=== PATIENT | female | born 1980 | race Hispanic/Latino ===

== ENCOUNTER 2017-05-17 12:06 | Inpatient (IN) | payer MEDICAID, OTHER, SELFPAY ==
[2017-05-17 12:49] VITALS: BMI 35.9
[2017-05-17] MEDS ORDERED: Lidocaine 1% (PF) 30 ML VIAL SC PRN (12:51)
[2017-05-17] MEDS ORDERED: Ondansetron HCl/PF 4 MG/2 ML Vial IVP PRN (12:51)
[2017-05-17] MEDS ORDERED: Promethazine HCl 25 MG/ML VIAL IM PRN (12:51)
[2017-05-17] MEDS ORDERED: LR / Pitocin 40 units/1000 ml 1,000 ML ONE (12:54)
[2017-05-17] MEDS ORDERED: Ibuprofen 800 MG TAB PO PRN (12:57)
[2017-05-17] MEDS ORDERED: Lactated Ringer's 1,000 ML IV SCH (13:00)
--- NOTE | 2017-05-17 13:12 | PDOC.LDHP ---
Labor and Delivery H&P Chief complaint: contractions HPI: 37 yr old at 37.2 wks by 8.1 wk sono who was sent over from [facility] for contractions and SVE of 5 cm dilated. She has had contractions since yesterday morning and are now occuring every 5 minutes. Also recent diagnosis today of cholestasis of . Bile acids 11. +GDM on BID metfromin. Last week of BG reviewed and all FBG <95 and 2 hr PP < 120. Reports no other concerns at this time. NILM pap 06/2015. She has hx of prior PTD during 1st . 2 subsequent pregnancies delivered full term with progesterone and one without progesterone. Current gestational age (weeks): 5 Due date: 06/05/17 Dating criteria: first trimester ultrasound Grav: 5 Para: 4 ([id number]) Current complications: gestational diabetes, other (cholestasis of dx today) Abnormal US findings: No (Anatomy wnl, marginal previa resolved on later screen. ) Past Medical History: none Current medications: pre- vitamins, iron Previous surgical history: none Allergies/Adverse Reactions: Allergies Allergy/AdvReac Type Severity Reaction Status Date / Time No Known Drug Allergies Allergy Verified 12/31/15 21:15 Social history: none - Physical Exam Vital signs reviewed and normal: yes General: NAD Heart: RRR Lungs: CTAB Abdomen: gravid Extremeties: no edema FHT: category 1 - Vaginal Exam cm dilated: 8 Effacement: 100% Station: -1 - OB Labs Blood type: O RH: positive Antibody Screen: negative HIV: negative RPR: negative HEPSAg: negative 1 hour GCT: positive (167) 3 hour GTT: positive (FB 1HR:208 2HR:175 3HR:204) GBS: negative Rubella: immune Additional Labs: 05/09/17- bile acids: 11, CMP wnl - Assessment L&D Assessment: term patient in labor - Plan Plan: admit to L&D -: 37 yr old at 37.2 wks by 8.1 wk sono here for contractions and recent finding of cholestasis of pregnance. 1. TIUP in labor- 1T labs reviewed, marginal previa at 20.1 wk, repeat on 04/11 showing posterior placenta no previa. check HIV/RPR, CMP. expectant mgmt with [facility]. 2. A1GDM- on metformin BID well controlled BG log reviewed. accucheck at admission 73. She has had weekly NST/BPP. Recent growth scan 37.1 wks showing hadlock 61.9% 3. Cholestasis of - diagnosed toraúla, bile acids 11 (nml=10), in labor. 4. hx of PTD- took progesterone until 36 wks. 5. Anemia of - on iron. check H/H. most recent 9.2 on 02/2017 6. s/p flu A infection
[2017-05-17 13:16] LABS: Mean Corpuscular HGB CONC 33.2 g/dL (32.0-36.0); Mean Corpuscular Hemoglobin 26.9 pg (27.0-31.0); Platelet Count 155 thou/uL (130-400); RBC Distribution Width 18.9 % (11.5-14.5); Red Blood Cell (RBC) Count 4.47 mill/uL (4.20-5.40); White Blood Cell (WBC) Count 8.8 thou/uL (4.8-10.8)
[2017-05-17 13:52] LABS: ALT (SGPT) 39 U/L (8-55); AST (SGOT) 25 U/L (5-34); Albumin 3.3 g/dL (3.5-5.0); Alkaline Phosphatase 249 U/L (40-150); Anion Gap 15 mmol/L (10-20); BUN (Urea Nitrogen) 13 mg/dL (7.0-18.7); Bilirubin, Total 0.4 mg/dL (0.2-1.2); Calc. Creatinine Clearance 151 mL/min (70-130); Calcium 8.9 mg/dL (7.8-10.44); Carbon Dioxide 21 mmol/L (22-29); Chloride 104 mmol/L (98-107); Estimated GFR-MDRD Greater than 90; Globulin 3.4 g/dL (2.4-3.5); Glucose 69 mg/dL (70-105); Potassium 4.5 mmol/L (3.5-5.1); Protein, Total 6.7 g/dL (6.0-8.3); Sodium 135 mmol/L (136-145)
[2017-05-17 14:11] LABS: HBSAg Index 0.15 S/CO (0-0.99); HIV (1/2) Antibody/Antigen Non-Reactive (NonReactive); HIV 1/2 INDEX 0.07 S/CO (<1.00); Hep B Surf Ag Non-Reactive S/CO (NonReactive)
[2017-05-17] MEDS: LR / Pitocin 40 units/1000 ml 1,000 ML IV PRN ×2 (14:14→15:07)
[2017-05-17 14:22] LABS: Syphilis Antibody Nonreactive (Nonreactive); Syphilis Antibody Index 0.02 S/CO (<1.00 Non-Reactive)
--- NOTE | 2017-05-17 14:32 | PDOC.OPDEL ---
OB Operative/Delivery Note Delivery Dr/Surgeon: Jena Shields MD Assist: Dr. Davis Pre-Delivery Diagnosis: active labor Procedure/Post Delivery Dx: spontaneous vaginal delivery Weeks gestation: 37 (37.2 WGA) Anesthesia: none - Findings A Sex: male - 1 min: 9 - 5 min: 9 - Additional Findings/Plan Placenta delivered: spontaneous Repaired Obstetrical Laceration: none Estimated blood loss: 800 ml Compilations/Other Findings: Vaginal Delivery Delivering Physician: Jena Shields MD Attending: Dr. Davis Procedure: Spontaneous Vaginal Delivery Anesthesia: none EBL: 800 ml Pre-op Diagnosis: 1. Term intrauterine in labor 2. A2GDM, well controlled 3. cholestasis of 4. Hx of labor and delivery at 31 wks 5. Advanced Maternal age 6. Anemia of Post-op Diagnosis: 1. Term intrauterine , delivered 2. A2GDM, well controlled 3. cholestasis of 4. Hx of labor and delivery at 31 wks 5. Advanced Maternal age 6. Anemia of Indications: A 37 y/o female presents in active labor Delivery Note: This is 37yo F @ 37.2 wks who delivered a viable Male infant at 1354 on 05/17/17. Following antepartum course including well controlled A2GDM and a new diagnosis of cholestasis of today, a vigorous male was delivered over an intact perineum in the left occipitoanterior position. Anterior Shoulder and then remainder of the body delivered. Nuchal cord x 1. The head was held down and mouth and nares were bulb suctioned. Cord clamped and cut and cord blood collected. Placenta delivered intact with a 3 vessel cord noted. Fundal massage was performed and the fundus was firm. The cervix and vagina were inspected and found to be free of lacerations. went to nursery in good condition for routine care. Apgars were 9/9 at 1 & 5 minutes, respectively. Patient tolerated delivery well and went to after routine recovery/care. Post delivery plan: routine recovery
[2017-05-17] MEDS ORDERED: Preparation H Ointment 28 GM TUBE PR PRN (16:19)
[2017-05-17] MEDS ORDERED: Milk Of Magnesia 30 ML UDCUP PO PRN (16:19)
[2017-05-17] MEDS ORDERED: Benzocaine/Menthol 20-0.5% 60 ML CAN TOP PRN (16:19)
[2017-05-17] MEDS ORDERED: Bisacodyl 10 MG SUPP PR PRN (16:19)
[2017-05-17] MEDS ORDERED: diphenhydrAMINE 25 MG CAP PO PRN (16:19)
[2017-05-17] MEDS ORDERED: LR / Pitocin 40 units/1000 ml 1,000 ML IV SCH (16:19)
[2017-05-17] MEDS ORDERED: Lanolin Ointment 7 GM TUBE TOP PRN (16:19)
[2017-05-17] MEDS: Ibuprofen 800 MG TAB PO SCH (17:13)
[2017-05-17 17:24] LABS: Hemoglobin 11.3 g/dL (12.0-16.0)
[2017-05-17] MEDS: Docusate Calcium (SURFAK) 240 MG CAP PO SCH (21:08)
[2017-05-18] MEDS: Ibuprofen 800 MG TAB PO SCH ×3 (00:07→14:15)
[2017-05-18] MEDS: Docusate Calcium (SURFAK) 240 MG CAP PO SCH (08:59)
[2017-05-18] MEDS ORDERED: Prenatal Vitamin 1 TAB PO SCH (09:00)
--- NOTE | 2017-05-18 09:13 | PDOC.PP ---
Post Progress Note Post Day #: 1 Subjective: Patient is doing well this morning. Pain well controlled. Minimal lochia. Tolerating food well and ambulating without issue. PO intake tolerated: yes Ambulation: yes Vital Signs (12 hours) Temp Pulse Resp BP BP 05/18/17 08:25 98.3 F 60 16 108/66 05/18/17 07:45 98.2 F 59 L 18 05/18/17 04:45 98.2 F 59 L 18 101/60 05/18/17 00:00 97.9 F 61 20 111/61 Weight Weight 86.183 kg - Physical Examination General: NAD Cardiovascular: no m/r/g, RRR Respiratory: clear to auscultation bilaterally, non-labored breathing Abdominal: + bowel sounds, lochia (decreased), no distention, appropriately TTP Fundus firm & at: below umbilicus Neurological: no gross focal deficits Psychiatric: A&Ox3, normal affect Result Diagrams: 05/17/17 17:12 05/17/17 13:08 Additional Labs: Post Labs Hep Bs Antigen Non-Reactive S/CO (NonReactive) 05/17/17 13:08 (1) Term delivered Code(s): O80 - ENCOUNTER FOR FULL-TERM UNCOMPLICATED DELIVERY Status: Acute Comment: 37 yr old day 1 s/p at 37.2 wks. doing well, tolerating PO and ambulating. Will send oral pain meds. If baby okay for discharge, can D/C later today. F/U clinic. She desires permanent sterilaztion to be discussed at follow up . (2) hemorrhage, delivered, current hospitalization Code(s): O72.1 - OTHER IMMEDIATE HEMORRHAGE Status: Acute Comment : EBL 800 ml. Lochia minimal today and hgb mildly decreased appropriately. Received pitocin PP. (3) Oral hypoglycemic controlled White classification A2 gestational diabetes mellitus (GDM) Code(s): O24.415 - GESTATNL DIABETES IN PREG, CTRL BY ORAL HYPOGLYCEMIC DRUGS Status: Resolved Comment: presumably resolved s/p delivery. Recommend rescreening at 6 wks PP. (4) Anemia affecting in third trimester Code(s): O99.013 - ANEMIA COMPLICATING , THIRD TRIMESTER Status: Resolved Comment: Hgb 12 --> 11.3 Doing well. May DC iron. cont PNV. (5) Cholestasis during in third trimester Code(s): O26.613 - LIVER AND BILIARY TRACT DISORD IN , THIRD TRIMESTER ; K83.1 - OBSTRUCTION OF BILE DUCT Status: Resolved Comment: delivered. (6) Advanced maternal age in multigravida Code(s): O09.529 - SUPERVISION OF ELDERLY MULTIGRAVIDA, UNSPECIFIED TRIMESTER Status: Chronic Comment: delivered.
[2017-05-18 11:46] VITALS: BP 114/70; TEMP 98.7
== END 2017-05-18 17:55 | disposition home or self-care (01) | DRG 774 ==
LOC: L&D/OP 12:06 → L&D 12:44 → 3SW 16:48
PROVIDERS: ADMIT Obstetrics & Gynecology Obstetrics; ATTEND Obstetrics & Gynecology Obstetrics
PROC: 10E0XZZ Delivery of Products of Conception, External Approach (ICD-10-PCS; principal; 2017-05-17)
PROC: 10907ZC Drainage of Amniotic Fluid, Therapeutic from Products of Conception, Via Natural or Artificial Opening (ICD-10-PCS; 2017-05-17)
DX: O24.425 Gestational diabetes mellitus in childbirth, controlled by oral hypoglycemic drugs (principal); O72.1 Other immediate postpartum hemorrhage; K83.1 Obstruction of bile duct; O26.613 Liver and biliary tract disorders in pregnancy, third trimester; O99.013 Anemia complicating pregnancy, third trimester; D64.9 Anemia, unspecified; O69.81X0 Labor and delivery complicated by cord around neck, without compression, not applicable or unspecified; Z3A.37 37 weeks gestation of pregnancy; Z37.0 Single live birth
CPT/HCPCS: 36415; 36416; 80053; 85027; 86780; 87340; 87389; 99285; J0595

== ENCOUNTER 2018-09-08 07:21 | Inpatient (IN) | payer OTHER, SELFPAY ==
[2018-09-08 07:55] VITALS: BMI 36.8
[2018-09-08] MEDS ORDERED: Fentanyl 100 MCG/2 ML VIAL SLOW IVP PRN (08:26)
[2018-09-08] MEDS ORDERED: Promethazine HCl 25 MG/ML VIAL IM PRN (08:26)
[2018-09-08] MEDS ORDERED: Ondansetron PF 4 MG/2 ML Vial IVP PRN (08:26)
[2018-09-08] MEDS ORDERED: Lactated Ringer's 1,000 ML IV SCH ×2 (08:30)
--- NOTE | 2018-09-08 08:34 | PDOC.LDHP ---
Labor and Delivery H&P Chief complaint: contractions HPI: 38 yo at 38.5 by 1T sono her for CTX. Started ysterday evening, inc in frequency. She feels them every 5 minutes. Denies loss of fluid, VB/VD. Endorses FM. No NEWBY, chest pain, vision changes. Current gestational age (weeks): 38 (38.5) Due date: 09/17/18 Dating criteria: first trimester ultrasound Grav: 6 Para: 5 OB History Details: 1. 5 SVDs, Abnormal US findings: Yes Current medications: pre- vitamins, iron Allergies/Adverse Reactions: Allergies Allergy/AdvReac Type Severity Reaction Status Date / Time No Known Drug Allergies Allergy Verified 12/31/15 21:15 Social history: none - Physical Exam Vital signs reviewed and normal: yes General: breathing through contractions Heart: RRR Lungs: nonlabored breathing Abdomen: NTTP FHT: category 1 [place] contractions every: 4-6min - Vaginal Exam cm dilated: 6 - OB Labs Blood type: O RH: positive Antibody Screen: negative HIV: negative RPR: negative HEPSAg: negative 1 hour GCT: negative GBS: negative Rubella: immune - Assessment L&D Assessment: term patient in labor - Plan Plan: admit to L&D, labor augmentation if indicated -: 38 yo admitted for active labor and expectant management. term, sIUP -6cm, bulging bag -FHT Cat I, CTX q4-6min -cervical checks q2hr or as indicated -does not desire epidural at this time -ultrasound shows cephalic position -continue expectant management Hx of PPROM -has been receiving qweekly progesterone injections Hx A2GDM -1hr GTT negative Hx Increased ICP -Denies NEWBY, vision changes FAVIOA - aware Discussed with Dr. Finney
[2018-09-08 08:55] LABS: Mean Corpuscular Hemoglobin 27.9 pg (27.0-31.0); Mean Corpuscular Volume 81.9 fL (78.0-98.0); Mean Platelet Volume 8.1 fL (7.4-10.4); Platelet Count 173 thou/uL (130-400); RBC Distribution Width 14.8 % (11.5-14.5); Red Blood Cell (RBC) Count 3.94 mill/uL (4.20-5.40); White Blood Cell (WBC) Count 9.6 thou/uL (4.8-10.8)
[2018-09-08] MEDS ORDERED: NS / Oxytocin 40 units/1000ml 1,000 ML ONE (09:00)
[2018-09-08] MEDS ORDERED: Lidocaine 1% (PF) 30 ML VIAL ONE (09:00)
[2018-09-08 09:34] LABS: HBSAg Index 0.37 S/CO (0-0.99); Hep B Surf Ag Non-Reactive S/CO (NonReactive); Syphilis Antibody Nonreactive (Nonreactive); Syphilis Antibody Index 0.02 S/CO (<1.00 Non-Reactive)
--- NOTE | 2018-09-08 10:53 | PDOC.OPDEL ---
OB Operative/Delivery Note Delivery Dr/Surgeon: Bobby Peterson Dudley Pre-Delivery Diagnosis: active labor Weeks gestation: 38 (38.5) Anesthesia: none - Additional Findings/Plan Placenta delivered: spontaneous Repaired Obstetrical Laceration: none Compilations/Other Findings: Delivering Physician: Bobby Peterson Dudley Attending: Dr. Finney Procedure: Spontaneous Vaginal Delivery Anesthesia: none QBL: 428cc Pre-op Diagnosis: 1. Term intrauterine in labor 2. Hx of PPROM and PTL 3. Hx of A2GDM 4. AMA Post-op Diagnosis: 1. Term intrauterine , delivered 2. same as above 3. same as above 4. same as above Indications: A 38y/o female presents in active labor Delivery Note: This is 38yo F now [id number] @ 38.5wks who delivered a viable F infant on 09/08 at 0912. Following an uneventful antepartum course, a vigorous F was delivered over an intact perineum in the OA position. Anterior Shoulder and then remainder of the body delivered. No nuchal cord. The head was held down and mouth and nares were bulb suctioned. Cord clamped after delayed cord clamping and cut and cord blood collected. Placenta delivered intact in the [place] presentation with a 3 vessel cord noted. Fundal massage was performed and the fundus was firm. The cervix and vagina were inspected and found to be free of lacerations. went to nursery in good condition for routine care. Apgars were 9/9 at 1 & 5 minutes, respectively. Patient tolerated delivery well and went to after routine recovery/care. Post delivery plan: routine recovery Addendum - Attending - Attending Attestation Date/Time: 09/08/18 1146 I was present/supervised/assisted throughout the procedure with Dr. Flores I agree with the History, Examination, Assessment and Plan documented above with any addition or exceptions noted below- Patient is a 38 yo at 38 weeks presented with contractions. Denies LOF or VB. (+) FM. Afebrile. VSS. SVE 6/C/0 Category 1 FHTs. [place] ctx q4 min. Patient rapidly progressed to complete and delivered a viable female infant over an intact perineum. SROM at delivery clear fluid. Head delivered atraumatically followed by shoulders and body. Apgars 9/9. Cord clamped and cut. 3V cord. Placenta delivered spontaneously and intact. No epis or lac. QBL 438mL. Infant and mother in stable condition. Residents: Mark/Bobby/[place].
[2018-09-08] MEDS ORDERED: NS / Oxytocin 40 units/1000ml 1,000 ML IV SCH (11:25)
[2018-09-08] MEDS ORDERED: Lanolin Ointment 7 GM TUBE TOP PRN (11:25)
[2018-09-08] MEDS ORDERED: Milk Of Magnesia 30 ML UDCUP PO PRN (11:25)
[2018-09-08] MEDS ORDERED: Bisacodyl 10 MG SUPP PR PRN (11:25)
[2018-09-08] MEDS ORDERED: Ibuprofen 800 MG TAB PO PRN (11:25)
[2018-09-08] MEDS ORDERED: Adacel (T-DAP) 0.5 ML SYRINGE IM ONE (11:25)
[2018-09-08] MEDS: Ferrous Sulfate 325 MG TAB PO SCH (17:32)
[2018-09-08] MEDS: Acetaminophen 325 MG TAB PO PRN (18:00)
[2018-09-08] MEDS: Docusate Calcium (SURFAK) 240 MG CAP PO SCH (21:19)
[2018-09-09] MEDS: Acetaminophen 325 MG TAB PO PRN (00:31)
--- NOTE | 2018-09-09 06:29 | PDOC.PP ---
Post Progress Note Post Day #: 1 Subjective: NAEO. Pt with some uterine cramping improved with ibuprofen and tylenol. No other complaints. PO intake tolerated: yes Flatus: yes Ambulation: yes Vital Signs (12 hours) Temp Pulse Resp BP Pulse Ox 09/09/18 04:25 98.1 F 70 18 118/70 09/09/18 00:30 98.0 F 65 18 108/62 09/08/18 19:30 98.0 F 75 18 105/55 L 98 Weight Weight 88.451 kg - Physical Examination General: NAD Cardiovascular: no m/r/g, RRR Respiratory: clear to auscultation bilaterally Abdominal: no distention Neurological: no gross focal deficits Psychiatric: A&Ox3, normal affect Result Diagrams: 09/09/18 08:25 Additional Labs: Post Labs Blood Type O POSITIVE 09/08/18 08:45 Hep Bs Antigen Non-Reactive S/CO (NonReactive) 09/08/18 08:45 - Assessment/Plan day 1 - with no tears or complications 09/08/18 -no issues, pain controlled, eating well -ready to go home pending baby bilirubin this AM -will send home with iron, ibuprofen and tylenol -breast feeding well -plans to f/u for [address] Gutierrez - contraception- IUD Addendum - Attending - Attending Attestation Date/Time: 09/11/18 0836 I personally evaluated the patient and discussed the management with Dr. Flores on 09/09/2018 I agree with the History, Examination, Assessment and Plan documented above with any addition or exceptions noted below- Patient denies any complaints. Ambulating. Minimal lochia Afebrile VSS. A/P: 1) PPD#1 s/p - doing well. Plan to d/c home today. F/U @ [facility] in 2 weeks.
[2018-09-09 07:43] VITALS: BP 118/67; TEMP 97.7
[2018-09-09 08:37] LABS: Hemoglobin 9.4 g/dL (12.0-16.0); Mean Corpuscular HGB CONC 33.4 g/dL (32.0-36.0); Mean Corpuscular Hemoglobin 27.6 pg (27.0-31.0); Mean Corpuscular Volume 82.4 fL (78.0-98.0); Mean Platelet Volume 8.1 fL (7.4-10.4); Platelet Count 153 thou/uL (130-400); RBC Distribution Width 15.2 % (11.5-14.5); Red Blood Cell (RBC) Count 3.43 mill/uL (4.20-5.40); White Blood Cell (WBC) Count 7.8 thou/uL (4.8-10.8)
[2018-09-09] MEDS: Ferrous Sulfate 325 MG TAB PO SCH (09:01)
[2018-09-09] MEDS: Docusate Calcium (SURFAK) 240 MG CAP PO SCH (09:01)
== END 2018-09-09 13:50 | disposition home or self-care (01) | DRG 807 ==
LOC: L&D/OP 07:21 → L&D 08:31 → 3SW 12:13
PROVIDERS: ADMIT Family Medicine; ATTEND Family Medicine
PROC: 10E0XZZ Delivery of Products of Conception, External Approach (ICD-10-PCS; principal; 2018-09-08)
DX: O80 Encounter for full-term uncomplicated delivery (principal); Z37.0 Single live birth; Z3A.38 38 weeks gestation of pregnancy
CPT/HCPCS: 36415; 85027; 86780; 86850; 86900; 86901; 87340; 99285; J2001